=== PATIENT | male | born 1940 | race Caucasian/White ===

== ENCOUNTER 2021-03-31 21:22 | Inpatient (IN) | payer OTHER ==
[~2021-03-31] VITALS: Ht 188 cm; Wt 87.5 kg
[2021-03-31] MEDS ORDERED: ASPirin 325 MG TAB PO ONE (21:45)
[2021-03-31] MEDS ORDERED: MORPHINE SULFATE 4 MG/ML SYR/VIAL IV ONE (21:45)
[2021-03-31] MEDS ORDERED: NTG 0.1MG/HR TOPICAL PATCH TD ONE (22:15)
[2021-03-31 22:22] LABS: Basophils # (auto) 0 10 ^3/uL (0-0.2); Basophils % (auto) 0.3 % (0.0-2.0); Eosinophils # (auto) 0.2 10 ^3/uL (0-0.8); Eosinophils % (auto) 2.2 % (0.0-7.0); Hematocrit 35.6 % (41.0-53.0); Hemoglobin 12.6 g/dL (13.5-17.5); Lymphocytes # (auto) 2.1 10 ^3/uL (0.4-5.4); Lymphocytes % (auto) 22.3 % (10.0-50.0); Mean Corpuscular Hgb Conc. 35.4 g/dL (32.0-36.0); Mean Corpuscular Volume 84.7 fL (80.0-100.0); Monocytes # (auto) 1.1 10 ^3/uL (0-1.3); Monocytes % (auto) 12.2 % (0.0-12.0); Neutrophils # (auto) 5.8 10 ^3/uL (1.6-8.6); Platelet Count (auto) 167 10^3/uL (140-450); Red Cell Distribution Width 14.3 % (11.8-14.3); White Blood Cell 9.2 10^3/uL (4.4-10.8)
[2021-03-31 22:41] LABS: Albumin 3.1 g/dL (3.4-5.0); Anion Gap 10 (5-15); Blood Urea Nitrogen 30 mg/dL (7-18); Calcium 8.6 mg/dL (8.5-10.1); Carbon Dioxide 21 mmol/L (21-32); Chloride 107 mmol/L (98-107); Glucose 179 mg/dL (74-106); Potassium 3.7 mmol/L (3.5-5.1); Sodium 138 mmol/L (136-145)
[2021-03-31 22:47] LABS: Alanine Aminotransferase 18 U/L (16-61); Alkaline Phosphatase 56 U/L (45-117); Aspartate Aminotransferase 14 U/L (15-37); BUN/Creatinine Ratio 22.1; Bilirubin, Total 0.3 mg/dL (0.2-1.0); GFR African American 65 mL/min; GFR Non-African American 53 mL/min; Total Protein 7.1 g/dL (6.4-8.2)
[2021-03-31 23:09] LABS: INR 1.06 (0.9-1.15); Partial Thromboplastin Time 29.9 sec (23.0-31.2)
[2021-04-01] MEDS ORDERED: NITROGLYCERIN 0.4 MG SL TAB SL PRN (01:15)
[2021-04-01] MEDS ORDERED: ONDANSETRON HCL 4 MG/2 ML VIAL IV PRN (01:15)
[2021-04-01] MEDS ORDERED: DEXTROSE (50%) 50ML SYRG IV PRN (01:15)
[2021-04-01] MEDS ORDERED: MORPHINE SULF INJ 2 MG/ML SYRINGE 1ML IV PRN (01:15)
[2021-04-01] MEDS ORDERED: ACETAMINOPHEN 325 MG TAB PO PRN (01:15)
[2021-04-01] MEDS ORDERED: IOHEXOL 350 MG/ML 100ML IJ ONE (01:50)
[2021-04-01] MEDS ORDERED: METO-6 PO (02:53)
[2021-04-01] MEDS ORDERED: LEVO25TA49 PO (02:53)
[2021-04-01 03:09] VITALS: BP 146/76
[2021-04-01 05:14] VITALS: BP 146/76
[2021-04-01] MEDS: ACCU-CHEK COMFORT CURVE STRIP VI SCH ×4 (06:27→22:01)
[2021-04-01] MEDS: LEVOTHYROXINE SODIUM 25 MCG TAB PO SCH (06:27)
[2021-04-01] MEDS: InsuLIN REG 1unit/0.01ml Soln (100units/ml) SC SCH ×4 (06:28→22:02)
[2021-04-01 08:53] VITALS: BP 127/73
[2021-04-01] MEDS: METOPROLOL SUCCINATE XL 50 MG TAB PO SCH (09:23)
[2021-04-01] MEDS: PANTOPRAZOLE 40 MG TAB PO SCH (09:23)
[2021-04-01] MEDS: ASPirin 81 mg TAB PO SCH (09:23)
[2021-04-01 13:00] VITALS: BP 120/65
[2021-04-01] MEDS ORDERED: POTASSIUM CHL 10 Meq TABLET PO ONE (14:45)
[2021-04-01] MEDS ORDERED: AZITHROMYCIN 250 MG TAB PO ONE (14:45)
[2021-04-01] MEDS ORDERED: FUROSEMIDE 40 MG TAB PO ONE (14:45)
[2021-04-01] MEDS: THROAT LOZENGES(CEPASTAT) MT PRN (15:23)
[2021-04-01 17:00] VITALS: BP_SYST 147; BP_SYST 150; BP_DIAS 72; BP_DIAS 83
[2021-04-01 22:00] VITALS: BP 111/63
[2021-04-01] MEDS: ATORVASTATIN 20 MG TAB PO SCH (22:00)
[2021-04-02] MEDS: TEMAZEPAM 15 MG CAP PO PRN ×2 (00:13→21:35)
[2021-04-02 05:00] VITALS: BP 123/82
[2021-04-02] MEDS: THROAT LOZENGES(CEPASTAT) MT PRN (05:42)
[2021-04-02] MEDS: ACCU-CHEK COMFORT CURVE STRIP VI SCH ×4 (06:01→21:36)
[2021-04-02] MEDS: LEVOTHYROXINE SODIUM 25 MCG TAB PO SCH (06:01)
[2021-04-02] MEDS: InsuLIN REG 1unit/0.01ml Soln (100units/ml) SC SCH ×4 (06:03→22:08)
[2021-04-02 07:27] LABS: Basophils # (auto) 0 10 ^3/uL (0-0.2); Basophils % (auto) 0.4 % (0.0-2.0); Eosinophils # (auto) 0.2 10 ^3/uL (0-0.8); Eosinophils % (auto) 1.8 % (0.0-7.0); Hematocrit 39.8 % (41.0-53.0); Hemoglobin 13.9 g/dL (13.5-17.5); Lymphocytes # (auto) 2.1 10 ^3/uL (0.4-5.4); Lymphocytes % (auto) 20.7 % (10.0-50.0); Mean Corpuscular Hemoglobin 29.5 pg (28.0-32.0); Mean Corpuscular Volume 84.4 fL (80.0-100.0); Monocytes # (auto) 0.9 10 ^3/uL (0-1.3); Monocytes % (auto) 9.1 % (0.0-12.0); Neutrophils # (auto) 6.8 10 ^3/uL (1.6-8.6); Nucleated Red Blood Cells % 0.5 %; Platelet Count (auto) 222 10^3/uL (140-450); Red Blood Cells 4.72 10^6/uL (4.5-5.90); Red Cell Distribution Width 13.9 % (11.8-14.3)
[2021-04-02 08:04] LABS: Anion Gap 9 (5-15); Blood Urea Nitrogen 25 mg/dL (7-18); Calcium 9.4 mg/dL (8.5-10.1); Carbon Dioxide 25 mmol/L (21-32); Chloride 102 mmol/L (98-107); Glucose 190 mg/dL (74-106); Potassium 3.9 mmol/L (3.5-5.1); Sodium 136 mmol/L (136-145)
[2021-04-02 08:12] LABS: BUN/Creatinine Ratio 19.2; GFR African American 68 mL/min; GFR Non-African American 56 mL/min
[2021-04-02] MEDS ORDERED: ADENOSINE 74 MG in GIVE UN-DILUTED 0 ML IV STA (08:40)
[2021-04-02 09:00] VITALS: BP 134/66
[2021-04-02] MEDS ORDERED: guaiFENesin-CODEINE Liq 5 ML UD PO PRN (10:30)
[2021-04-02 11:13] VITALS: BP 124/76
[2021-04-02 13:00] VITALS: BP 142/68
[2021-04-02] MEDS: PANTOPRAZOLE 40 MG TAB PO SCH (13:00)
[2021-04-02] MEDS: POTASSIUM CHL 10 Meq TABLET PO SCH (13:00)
[2021-04-02] MEDS: ASPirin 81 mg TAB PO SCH (13:00)
[2021-04-02] MEDS: FUROSEMIDE 40 MG TAB PO SCH (13:00)
[2021-04-02] MEDS: METOPROLOL SUCCINATE XL 50 MG TAB PO SCH (13:01)
[2021-04-02] MEDS: AZITHROMYCIN 250 MG TAB PO SCH (13:01)
[2021-04-02 17:00] VITALS: BP 136/77
[2021-04-02] MEDS: ATORVASTATIN 20 MG TAB PO SCH (21:35)
[2021-04-02 22:01] VITALS: BP 142/72
[2021-04-03 05:00] VITALS: BP 145/75
[2021-04-03 06:13] LABS: Basophils # (auto) 0 10 ^3/uL (0-0.2); Basophils % (auto) 0.4 % (0.0-2.0); Eosinophils # (auto) 0.2 10 ^3/uL (0-0.8); Eosinophils % (auto) 2.9 % (0.0-7.0); Hematocrit 40.4 % (41.0-53.0); Hemoglobin 13.8 g/dL (13.5-17.5); Lymphocytes # (auto) 1.8 10 ^3/uL (0.4-5.4); Lymphocytes % (auto) 21.6 % (10.0-50.0); Mean Corpuscular Hemoglobin 28.8 pg (28.0-32.0); Mean Corpuscular Hgb Conc. 34.1 g/dL (32.0-36.0); Mean Corpuscular Volume 84.2 fL (80.0-100.0); Monocytes # (auto) 0.7 10 ^3/uL (0-1.3); Monocytes % (auto) 8.7 % (0.0-12.0); Neutrophils # (auto) 5.5 10 ^3/uL (1.6-8.6); Neutrophils % (auto) 66.4 % (37.0-80.0); Nucleated Red Blood Cells % 0.3 %; Platelet Count (auto) 223 10^3/uL (140-450); Red Cell Distribution Width 13.8 % (11.8-14.3); White Blood Cell 8.3 10^3/uL (4.4-10.8)
[2021-04-03] MEDS: ACCU-CHEK COMFORT CURVE STRIP VI SCH ×2 (06:19→11:34)
[2021-04-03] MEDS: InsuLIN REG 1unit/0.01ml Soln (100units/ml) SC SCH ×2 (06:21→11:34)
[2021-04-03 06:49] LABS: Potassium 3.9 mmol/L (3.5-5.1)
[2021-04-03] MEDS ORDERED: LEVOTHYROXINE SODIUM 50 MCG TAB PO SCH (07:00)
[2021-04-03 07:09] LABS: Calcium 9.3 mg/dL (8.5-10.1)
[2021-04-03 09:00] VITALS: BP 116/64
[2021-04-03] MEDS: POTASSIUM CHL 10 Meq TABLET PO SCH (09:42)
[2021-04-03] MEDS: ASPirin 81 mg TAB PO SCH (09:42)
[2021-04-03] MEDS: METOPROLOL SUCCINATE XL 50 MG TAB PO SCH (09:43)
[2021-04-03] MEDS: FUROSEMIDE 40 MG TAB PO SCH (09:43)
[2021-04-03] MEDS: PANTOPRAZOLE 40 MG TAB PO SCH (09:43)
[2021-04-03] MEDS: AZITHROMYCIN 250 MG TAB PO SCH (09:44)
[2021-04-03] MEDS: THROAT LOZENGES(CEPASTAT) MT PRN (09:49)
[2021-04-03] MEDS ORDERED: ATOR20TA50 PO (11:17)
[2021-04-03] MEDS ORDERED: AZIT500T66 PO (11:17)
[2021-04-03] MEDS ORDERED: ASPI1CHW15 PO (11:17)
[2021-04-03 13:00] VITALS: BP 131/74
== END 2021-04-03 13:20 | disposition home or self-care (01) | DRG 291 ==
LOC: EDBD 21:22 → EDUNIT# 21:22 → ER 21:28 → TELE-WESTW 04-01 01:09
PROVIDERS: ADMIT Nurse Practitioner; ATTEND Internal Medicine Pulmonary Disease
DX: I13.0 Hypertensive heart and chronic kidney disease with heart failure and stage 1 through stage 4 chronic kidney disease, or unspecified chronic kidney disease (principal); I50.43 Acute on chronic combined systolic (congestive) and diastolic (congestive) heart failure; E44.0 Moderate protein-calorie malnutrition; J20.9 Acute bronchitis, unspecified; I25.110 Atherosclerotic heart disease of native coronary artery with unstable angina pectoris; N18.9 Chronic kidney disease, unspecified; E11.21 Type 2 diabetes mellitus with diabetic nephropathy; Z20.822 Contact with and (suspected) exposure to COVID-19; E78.5 Hyperlipidemia, unspecified; E11.22 Type 2 diabetes mellitus with diabetic chronic kidney disease; Z83.3 Family history of diabetes mellitus; Z86.73 Personal history of transient ischemic attack (TIA), and cerebral infarction without residual deficits; Z68.25 Body mass index [BMI] 25.0-25.9, adult; Z95.1 Presence of aortocoronary bypass graft
CPT/HCPCS: 36415; 71045; 71260; 74177; 78452; 80048; 80053; 82962; 83036; 83735; 84443; 84484; 85025; 85379; 85610; 85730; 87426; 93005; 93017; 93306; 93970; G0378; J0153; J1815